=== PATIENT | female | born 1950 | race African-American/Black ===

== ENCOUNTER 2018-07-24 20:52 | Emergency (ER) | payer OTHER, MEDICAID ==
[~2018-07-24] VITALS: Ht 170.2 cm; Wt 86.6 kg
[~2018-07-24 20:52] MED LIST: AMLO5TAB PO; GLIP5TER PO; IBUP-974 PO; METF1000 PO; SIMV40TA1 PO
[2018-07-24 21:14] VITALS: BP 130/70
--- NOTE | 2018-07-24 21:20 | NUR ---
PT AMBULATED TO BED 6.
--- NOTE | 2018-07-24 21:25 | NUR ---
67/F PRESENTS SELF TO ED, C/O NONPRODUCTIVE COUGH AND CONGESTION, HEADACHE, BODYACHES, X3 DAYS. DENIES FEVER. REPORTS HAVING URI FOR 2 WEEKS THAT RESOLVED. PT AOX4, SKIN NORMAL WARM AND DRY, RR EVEN AND UNLABORED. LUNG SOUNDS CLEAR BL. HX DM, HTN, HLD OTC MUCINEX, COUGH DROPS
--- NOTE | 2018-07-24 21:29 | NUR ---
DR. EMERY BEDSIDE EVALUATING PT
[2018-07-24] MEDS ORDERED: KETOROLAC 60 MG/2 ML VIAL IM ONE (21:35)
--- NOTE | 2018-07-24 21:36 | NUR ---
PT REFUSED TORADOL IM DESPITE EDUCATION, PT STATED "I DON'T LIKE NEEDLES." PT STATED THAT SHE WILL TAKE MOTRIN AT HOME.
[2018-07-24 21:49] VITALS: BP 134/73
--- NOTE | 2018-07-24 21:49 | NUR ---
Patient discharged with v/s stable. Written and verbal after care instructions given and explained. Patient alert, oriented and verbalized understanding of instructions. Ambulatory with steady gait. All questions addressed prior to discharge. ID band removed. Patient advised to follow up with PMD. Rx of PREDNISONE, MOTRIN given. Patient educated on indication of medication including possible reaction and side effects. Opportunity to ask questions provided and answered.
== END 2018-07-24 21:49 | disposition home or self-care (01) ==
LOC: MED 20:52
DX: R51 Headache (principal); R05 Cough; E11.9 Type 2 diabetes mellitus without complications; I10 Essential (primary) hypertension; Z79.1 Long term (current) use of non-steroidal anti-inflammatories (NSAID); Z79.84 Long term (current) use of oral hypoglycemic drugs; Z88.5 Allergy status to narcotic agent; Z90.49 Acquired absence of other specified parts of digestive tract
CPT/HCPCS: 82948; 99283; J1885

== ENCOUNTER 2018-11-09 19:43 | Emergency (ER) | payer OTHER, MEDICAID ==
[~2018-11-09] VITALS: Ht 170.2 cm; Wt 87.1 kg
[2018-11-09 19:50] VITALS: BP 125/65
--- NOTE | 2018-11-09 19:50 | NUR ---
TO BED # 09 AMBULATORY
[2018-11-09] MEDS ORDERED: KETOROLAC 60 MG/2 ML VIAL IM ONE (20:00)
--- NOTE | 2018-11-09 20:05 | NUR ---
67 YO F BIB SELF C/O 09/04 LEFT HIP PAIN OFF AND ON X 1 WEEK. PT DENIES RECENT TRAUMA/INJURY. PT STATES "IT STARTED AFTER LAYING ON MY SIDE FOR A LONG PERIOD OF TIME BUT I MAY HAVE FALLEN ON IT IN THE PAST". PT STATES THE PAIN IS WORSE WHILE SHE IS WALKING. -- PT AWAKE, A/O X 4, CALM, COOPERATIVE. BEHAVIOR AGE APPROPRIATE. -- SKIN PINK, WARM, DRY. BREATHING EVEN, UNLABORED. PMH-- DM, HTN, HYPERLIPIDEMIA
--- NOTE | 2018-11-09 20:43 | NUR ---
DR. EMERY EVALUATING AT BEDSIDE.
--- NOTE | 2018-11-09 20:44 | NUR ---
Dr. Patel evaluating patient at bedside.
[2018-11-09 20:56] VITALS: BP 125/65
--- NOTE | 2018-11-09 20:56 | NUR ---
Patient discharged with v/s stable. Written and verbal after care instructions given and explained. Patient alert, oriented and verbalized understanding of instructions. Ambulatory with steady gait. All questions addressed prior to discharge. ID band removed. Patient advised to follow up with PMD. Rx of Motrin and [place] given. Patient educated on indication of medication including possible reaction and side effects. Opportunity to ask questions provided and answered.
== END 2018-11-09 20:56 | disposition home or self-care (01) ==
LOC: MED 19:43
DX: S70.02XA Contusion of left hip, initial encounter (principal); E11.9 Type 2 diabetes mellitus without complications; I10 Essential (primary) hypertension; E78.5 Hyperlipidemia, unspecified; Z79.899 Other long term (current) drug therapy; Z88.5 Allergy status to narcotic agent; Z90.710 Acquired absence of both cervix and uterus; Z79.84 Long term (current) use of oral hypoglycemic drugs; X58.XXXA Exposure to other specified factors, initial encounter; Y93.89 Activity, other specified; Y92.89 Other specified places as the place of occurrence of the external cause; Y99.8 Other external cause status
CPT/HCPCS: 96372; 99283; J1885

== ENCOUNTER 2019-02-24 22:17 | Emergency (ER) | payer OTHER, MEDICAID ==
[~2019-02-24] VITALS: Ht 170.2 cm; Wt 88.0 kg
[2019-02-24 22:18] VITALS: BP 159/84
--- NOTE | 2019-02-24 22:21 | NUR ---
TO LOBBY A/W BED AMBULATORY
--- NOTE | 2019-02-24 22:50 | NUR ---
PT CALLED, NO RESPONSE.
--- NOTE | 2019-02-24 23:00 | NUR ---
PT CALLED, NO RESPONSE.
--- NOTE | 2019-02-24 23:30 | NUR ---
PT CALLED, NO RESPONSE. PT LEFT WITHOUT BEING SEEN AT 2250
== END 2019-02-24 22:50 | disposition left against medical advice (07) ==
LOC: MED 22:17
DX: M25.512 Pain in left shoulder (principal); M54.2 Cervicalgia; Z53.21 Procedure and treatment not carried out due to patient leaving prior to being seen by health care provider; V89.2XXA Person injured in unspecified motor-vehicle accident, traffic, initial encounter; Y93.89 Activity, other specified; Y92.410 Unspecified street and highway as the place of occurrence of the external cause; Y99.8 Other external cause status
CPT/HCPCS: 73030; 99281

== ENCOUNTER 2019-02-25 18:50 | Emergency (ER) | payer OTHER, MEDICAID ==
[~2019-02-25] VITALS: Ht 170.2 cm; Wt 86.2 kg
[2019-02-25 18:59] VITALS: BP 141/77
--- NOTE | 2019-02-25 19:12 | NUR ---
Patient ambulated to bed 2. RN evaluating patient at bedside.
--- NOTE | 2019-02-25 19:24 | NUR ---
68 Y/O FEMALE C/O L SHOULDER PAIN S/P TC X LAST NIGHT. SEEN HERE LAST NIGHT X RAY NO FRACTURE. PAIN IS AN 8/10. +ROM. NO INJURY TO HEAD; PERRLA +3 SECONDS. ERMD MADE AWARE OF STATUS. SIDE [id number]. WILL CONTINUE TO MONITOR. MED HX: HTN, DM, HIGH CHOLESTEROL RX: DM MEDICATIONS; HTN MEDICATION ALLERGIES: CODEINE
[2019-02-25] MEDS ORDERED: KETOROLAC 30 MG/ML VIAL IM ONE ×2 (19:25→19:35)
[2019-02-25 19:53] VITALS: BP 135/68
--- NOTE | 2019-02-25 19:54 | NUR ---
Patient discharged with v/s stable. Written and verbal after care instructions given and explained. Patient alert, oriented and verbalized understanding of instructions. Ambulatory with steady gait. All questions addressed prior to discharge. ID band removed. Patient advised to follow up with PMD. Rx of norco, ibuprofen given. Patient educated on indication of medication including possible reaction and side effects. Opportunity to ask questions provided and answered.
== END 2019-02-25 19:53 | disposition home or self-care (01) ==
LOC: MED 18:50
DX: S46.912A Strain of unspecified muscle, fascia and tendon at shoulder and upper arm level, left arm, initial encounter (principal); E11.9 Type 2 diabetes mellitus without complications; I10 Essential (primary) hypertension; Z79.899 Other long term (current) drug therapy; Z79.1 Long term (current) use of non-steroidal anti-inflammatories (NSAID); Z88.5 Allergy status to narcotic agent; V89.2XXA Person injured in unspecified motor-vehicle accident, traffic, initial encounter; Y93.89 Activity, other specified; Y92.410 Unspecified street and highway as the place of occurrence of the external cause; Y99.8 Other external cause status
CPT/HCPCS: 96372; 99283; J1885

== ENCOUNTER 2023-03-17 19:45 | Emergency (ER) | payer OTHER ==
[~2023-03-17] VITALS: Ht 167.6 cm; Wt 77.1 kg
[~2023-03-17 19:45] MED LIST changes: +METF-1274 PO; -METF1000 PO; +SIMV-373 PO; -SIMV40TA1 PO
[2023-03-17 20:18] VITALS: BP 139/77; PULSE 85; RESP 20; TEMP 97; O2SAT 98
[2023-03-17] MEDS ORDERED: KETOROLAC 60 MG/2 ML VIAL IM ONE (21:15)
[2023-03-17 21:34] VITALS: BP 130/64; PULSE 81; RESP 20; TEMP 97; O2SAT 98
== END 2023-03-17 21:34 | disposition home or self-care (01) ==
LOC: MED 19:45
DX: S70.02XA Contusion of left hip, initial encounter (principal); E11.9 Type 2 diabetes mellitus without complications; I10 Essential (primary) hypertension; Z90.710 Acquired absence of both cervix and uterus; Z79.899 Other long term (current) drug therapy; Z79.1 Long term (current) use of non-steroidal anti-inflammatories (NSAID); Z88.5 Allergy status to narcotic agent; X58.XXXA Exposure to other specified factors, initial encounter; Y92.89 Other specified places as the place of occurrence of the external cause; Y93.89 Activity, other specified; Y99.8 Other external cause status
CPT/HCPCS: 73502; 96372; 99283